=== PATIENT | female | born 1990 | race African-American/Black ===

== ENCOUNTER 2016-06-20 19:30 | Emergency (ER) | payer MEDICAID, OTHER ==
[~2016-06-20] VITALS: Ht 149.9 cm; Wt 93.0 kg
[~2016-06-20 19:30] MED LIST: PROZAC
[2016-06-20 23:57] VITALS: BP 129/84
== END 2016-06-21 00:41 | disposition home or self-care (01) ==
LOC: ER 19:32 → EDBD 19:32 → ER 06-21 00:41
DX: J02.0 Streptococcal pharyngitis (principal)